=== PATIENT | female | born 2000 | race Two or more races ===

== ENCOUNTER 2025-05-18 18:10 | Emergency (ER) | payer OTHER ==
[~2025-05-18] VITALS: Ht 162.6 cm; Wt 54.4 kg
[2025-05-18] MEDS ORDERED: KETOROLAC TROMETHAMINE 30 MG VIAL ONE (18:41)
[2025-05-18] MEDS ORDERED: ONDANSETRON HCL 2 MG/ML VIAL ONE (18:41)
[2025-05-18] MEDS ORDERED: FAMOTIDINE/PF 20 MG/2 ML VIAL ONE (18:42)
[2025-05-18] MEDS ORDERED: ONDANSETRON HCL 2 MG/ML VIAL IV ONE (18:45)
[2025-05-18] MEDS ORDERED: FAMOTIDINE/PF 20 MG/2 ML VIAL IV ONE (18:45)
[2025-05-18] MEDS ORDERED: KETOROLAC TROMETHAMINE 30 MG VIAL IV ONE (18:45)
[2025-05-18] MEDS ORDERED: 0.9 % SODIUM CHLORIDE 1,000 ML IV ONE (18:45)
[2025-05-18 19:01] LABS: BASO % 0.2 % (0.1-1.2); EOS # 0.36 (0.04-0.54); EOS % 2.1 % (0.7-7.0); LYMPH # 1.51 (1.18-3.74); LYMPH % 8.7 % (19.3-53.1); MEAN PLATELET VOLUME 10.10 fl (9.4-12.4); MONO # 1.70 (0.24-0.82); MONO % 9.8 % (4.7-12.5); NEUT # 13.61 (1.56-6.13); NEUT % 78.7 % (34.0-71.1); RED CELL DISTRIBUTION WIDTH 12.2 % (11.6-14.4)
[2025-05-18 19:20] LABS: INR 1.07
[2025-05-18 19:21] LABS: ERYTHROCYTE SEDIMENTATION RATE 5 mm/hr (0-20)
[2025-05-18 19:41] LABS: ALT/SGPT 24.0 U/L (12-78); AST/SGOT 20.0 U/L (15-37); BILIRUBIN TOTAL 0.48 mg/dL (0.3-1.2); BUN CREA RATIO 21.0 (7.0-25.0); CREATININE SERUM 0.71 mg/dL (0.55-1.02); GFR 102.94; GLOBULINA 3.1 G/DL (2.4-3.5); GLUCOSE FASTING 122.0 mg/dL (65-100); OSMOLALITY SERUM 285.0 MOSM/KG (275-295)
[2025-05-18 20:01] LABS: COVID-19 AG NEGATIVE (NEGATIVE)
[2025-05-18 21:33] LABS: BASO % 0.3 % (0.1-1.2); EOS # 0.11 (0.04-0.54); EOS % 0.8 % (0.7-7.0); LYMPH # 0.52 (1.18-3.74); LYMPH % 4.0 % (19.3-53.1); MEAN PLATELET VOLUME 10.00 fl (9.4-12.4); MONO # 0.81 (0.24-0.82); MONO % 6.2 % (4.7-12.5); NEUT # 11.55 (1.56-6.13); NEUT % 88.2 % (34.0-71.1); RED CELL DISTRIBUTION WIDTH 12.5 % (11.6-14.4)
[2025-05-18] MEDS ORDERED: INTESTINEX680 M1 PO (22:23)
[2025-05-18] MEDS ORDERED: DICY20TA PO (22:23)
== END 2025-05-18 23:48 | disposition home or self-care (01) ==
LOC: ER 18:11
DX: A05.9 Bacterial foodborne intoxication, unspecified (principal); Z20.822 Contact with and (suspected) exposure to COVID-19